=== PATIENT | male | born 1965 | race Caucasian/White ===

== ENCOUNTER 2024-12-07 12:49 | Emergency (ER) | payer MEDICAID ==
[~2024-12-07] VITALS: Ht 162.6 cm; Wt 72.6 kg
[~2024-12-07 12:49] MED LIST: ALBU18HF2 INH; PRED20TA PO
[2024-12-07] MEDS ORDERED: ALBU8.5H8 INH (13:52)
[2024-12-07] MEDS ORDERED: PRED50TA PO (13:52)
[2024-12-07 14:15] VITALS: BP 127/73; TEMP 97.8; O2SAT 98
== END 2024-12-07 14:16 | disposition home or self-care (01) ==
LOC: ER 12:49
DX: J45.901 Unspecified asthma with (acute) exacerbation (principal); K13.79 Other lesions of oral mucosa; F17.200 Nicotine dependence, unspecified, uncomplicated; Z79.52 Long term (current) use of systemic steroids; Z60.2 Problems related to living alone
CPT/HCPCS: A4606; A4663

== ENCOUNTER 2025-06-26 02:27 | Emergency (ER) | payer OTHER ==
[~2025-06-26] VITALS: Ht 162.6 cm; Wt 74.8 kg
[~2025-06-26 02:27] MED LIST changes: +ALBU8.5H8 INH; +FLUT12AE20 INH; +PRED50TA PO
[2025-06-26 04:26] VITALS: BP 109/79
[2025-06-26] MEDS ORDERED: ALBUTEROL SULFATE 2.5 MG/3 ML NEBU ONE (06:13)
[2025-06-26 06:15] LABS: PLATELET COUNT (AUTO) 235 K/uL (152-348); RED BLOOD CELL COUNT(AUTO) 4.61 MIL/uL (4.06-5.63); RED CELL DISTRIBUTION WIDTH 13.3 % (12.1-16.2); WHITE BLOOD COUNT (AUTO) 6.0 K/uL (3.6-10.2)
[2025-06-26 06:18] VITALS: O2SAT 96
[2025-06-26] MEDS: ALBUTEROL SULFATE 2.5 MG/3 ML NEBU NEB ONE (06:18)
[2025-06-26 06:23] LABS: CREATININE 0.9 mg/dL (0.6-1.3); SODIUM SERUM 140.0 mmol/L (136-145); UREA NITROGEN, BLOOD 15.0 mg/dL (7-18)
[2025-06-26 06:30] LABS: ASPARTATE AMINOTRANSFERASE 14.0 U/L (15-37); TOTAL PROTEIN, SERUM 6.5 g/dL (6.4-8.2)
[2025-06-26 06:33] VITALS: O2SAT 96
[2025-06-26 06:36] VITALS: O2SAT 96
[2025-06-26] MEDS ORDERED: FLUT12AE5 INH (07:04)
[2025-06-26] MEDS ORDERED: PRED20TA PO (07:04)
[2025-06-26 07:19] VITALS: BP 109/79; TEMP 97.8; O2SAT 96
== END 2025-06-26 07:19 | disposition home or self-care (01) ==
LOC: ER 02:36
DX: J45.901 Unspecified asthma with (acute) exacerbation (principal); F17.200 Nicotine dependence, unspecified, uncomplicated; Z79.51 Long term (current) use of inhaled steroids; Z79.52 Long term (current) use of systemic steroids
CPT/HCPCS: 36415; 71045; 85025; A4606; A4663